=== PATIENT | male | born 1945 ===

== ENCOUNTER 2018-08-13 09:47 | Inpatient (IN) | payer OTHER ==
[~2018-08-13] VITALS: Ht 170.2 cm; Wt 66.7 kg
[2018-08-13] MEDS ORDERED: DIAZEPAM10 MG PO (10:21)
[2018-08-13] MEDS ORDERED: HUMALOG100 UNIT/1 SQ (10:21)
[2018-08-13] MEDS ORDERED: COZAAR25 MG PO (10:21)
[2018-08-13] MEDS ORDERED: SIMVASTATIN20 MG PO (10:22)
[2018-08-13] MEDS ORDERED: ZANTAC300 MG PO (10:22)
[2018-08-13] MEDS ORDERED: SYNTHROID175 MCG PO (10:22)
[2018-08-24] MEDS ORDERED: AMOX1TAB5 PO (16:23)
[2018-08-24] MEDS ORDERED: INTESTINEX680 M1 PO (16:23)
[2018-08-24] MEDS ORDERED: TAMS0.4C PO (16:24)
== END 2018-08-24 20:22 | disposition home or self-care (01) | DRG 417 ==
LOC: ER 09:47 → MEDI 13:49
PROC: 02HV33Z Insertion of Infusion Device into Superior Vena Cava, Percutaneous Approach (ICD-10-PCS; principal; 2018-08-14)
PROC: 3E0436Z Introduction of Nutritional Substance into Central Vein, Percutaneous Approach (ICD-10-PCS; 2018-08-14)
PROC: 0F798ZZ Dilation of Common Bile Duct, Via Natural or Artificial Opening Endoscopic (ICD-10-PCS; 2018-08-17)
PROC: 0FC98ZZ Extirpation of Matter from Common Bile Duct, Via Natural or Artificial Opening Endoscopic (ICD-10-PCS; 2018-08-17)
PROC: 0FT44ZZ Resection of Gallbladder, Percutaneous Endoscopic Approach (ICD-10-PCS; 2018-08-19)
DX: K80.62 Calculus of gallbladder and bile duct with acute cholecystitis without obstruction (principal); K85.10 Biliary acute pancreatitis without necrosis or infection; N17.8 Other acute kidney failure; E11.65 Type 2 diabetes mellitus with hyperglycemia; N18.1 Chronic kidney disease, stage 1; I12.9 Hypertensive chronic kidney disease with stage 1 through stage 4 chronic kidney disease, or unspecified chronic kidney disease; E03.9 Hypothyroidism, unspecified; E78.49 Other hyperlipidemia; E78.00 Pure hypercholesterolemia, unspecified; F41.9 Anxiety disorder, unspecified; K21.9 Gastro-esophageal reflux disease without esophagitis; Z79.4 Long term (current) use of insulin; Z85.850 Personal history of malignant neoplasm of thyroid